=== PATIENT | male | born 1980 | race Caucasian/White ===

== ENCOUNTER 2022-07-03 03:25 | Outpatient (CLI) | payer OTHER, SELFPAY ==
[2022-07-03 16:37] LABS: Calculated LDL 112 mg/dL (<100); Cholesterol 195 mg/dL (<200); HDL Cholesterol 38 mg/dL (40-60); Triglyceride 228 mg/dL (<150)
[2022-07-04 14:33] LABS: Hemoglobin A1C 5.3 % (<5.7)
== END 2022-07-03 03:26 | disposition home or self-care (01) ==
PROVIDERS: Visit Provider Nurse Practitioner
DX: Z13.220 Encounter for screening for lipoid disorders (principal); Z13.1 Encounter for screening for diabetes mellitus
CPT/HCPCS: 36415; 80061; 83036